=== PATIENT | female | born 1955 | race Hispanic/Latino ===

== ENCOUNTER → 2018-08-26 | Outpatient (CLI) | payer BC ==
[~2018-08-26] MED LIST: ASPIRIN81 MG PO; BYSTOLIC5 MG PO; COUMADIN5 MG PO; DIGOXIN250 MCG PO; GLIMEPIRIDE2 MG PO; LEVEMIR100 UNIT/1 SQ; LOSARTAN POTASS50 MG PO; PLAVIX75 MG PO; WARFARIN SODIUM5 MG PO
--- NOTE | 2018-09-11 08:51 | Diagnostic Imaging Report ---
#[id number] - [id number] #BILATERAL DIGITAL SCREENING MAMMOGRAM WITH CAD: 08/26/2018 CLINICAL: Routine screening. No prior exams were available for comparison. Current study contains 4 films. There are scattered fibroglandular elements in both breasts. Current study was also evaluated with a Computer Aided Detection (CAD) system. There are benign vascular calcifications and calcifications in both breasts. There also are benign intramammary nodes in both breasts. No significant masses, calcifications, or other findings are seen in either breast. IMPRESSION: BENIGN There is no mammographic evidence of malignancy. A 1 year screening mammogram is recommended. The patient will be notified by letter of the results. Robert ortiz/oriana:09/10/2018 14:12:40 Gathering Worker: Renae FERRER(R)(M), [facility] letter sent: Normal Exam Mammogram BI-RADS: 2 Benign
== END ==
LOC: MAMMO 09:34
PROVIDERS: ATTEND Internal Medicine
DX: Z12.31 Encounter for screening mammogram for malignant neoplasm of breast (principal)
CPT/HCPCS: 77067

== ENCOUNTER 2019-05-21 17:16 | Inpatient (IN) | payer MEDICARE, BC ==
[~2019-05-21] VITALS: Ht 162.6 cm; Wt 88.9 kg
--- NOTE | 2019-05-21 17:23 | NUR ---
Patient admitted to facility from [place] Patient is AAOx3. Patient lung snyder clear to ausculation. Bowel sounds present x4 but hypoactive on left side. Patient has some pain noted on left side of abdomen. Patient ambulates on her own. No s/s of distress noted. Right AC Iv in place. Iv fluids infusing. Patient is NPO at this time.
[2019-05-21] MEDS ORDERED: CLONIDINE HCL 0.1 MG TAB PO PRN (17:30)
[2019-05-21] MEDS ORDERED: DEXTROSE 50% SYRINGE 50 ML IV PRN (17:30)
[2019-05-21] MEDS ORDERED: ONDANSETRON HCL INJ 2MG/ML 2ML 2 MG/ML VIAL IV PRN (17:45)
[2019-05-21] MEDS ORDERED: HYDROMORPHONE 1MG/1ML INJ IV PRN (17:45)
[2019-05-21] MEDS: DIGOXIN INJ 0.25 MG/ML 2 ML AMP IV SCH (18:00)
[2019-05-21 18:14] VITALS: BP 146/71
[2019-05-21 18:17] VITALS: BP 146/71
[2019-05-21] MEDS ORDERED: COUMADIN5 MG PO ×2 (18:27→18:28)
[2019-05-21] MEDS: NEBIVOLOL 10 MG TAB PO SCH (18:37)
[2019-05-21] MEDS: SODIUM CHLORIDE 0.9% 1000ML 1,000 ML SCH (18:46)
--- NOTE | 2019-05-21 19:37 | History and Physical ---
REASON FOR ADMISSION: Acute cholecystitis in a patient with atrial fibrillation, coronary artery disease, hypertension, and diabetes mellitus. HISTORY: A 64-year-old lady, who is known with longstanding history of atrial fibrillation, coronary artery disease, status post anterior wall myocardial infarction in October 2015 with successful PCI and stenting of proximal LAD. She is diabetic with end-organ damage in addition to hypertension, atrial fibrillation on anticoagulation; remote past history of pulmonary embolism 20 years ago after . The patient is not doing well for the last few days, initially felt it has chest pain, and she came urgently to the emergency room. Upon exam, it was clear the patient having abdominal discomfort. CT scan showed acute cholecystitis confirmed by ultrasound, which showed gallstones. The patient's INR is elevated. We thought she needed to be on IV antibiotics and let her INR drift slowly. Surgical consultation with Dr. Bailey is obtained. HOME MEDICATIONS: Include: Plavix 75 mg a day, Bystolic 5 mg twice a day, losartan 50 mg a day, digoxin 0.125 mg a day, warfarin 15 mg 5 days a week and 10 mg 2 days a week. Levemir 20 units and sliding scale. ALLERGIES: SULFA AND STATIN. THE PATIENT IS INTOLERANT TO ALL STATINS. PAST MEDICAL HISTORY: 1. Coronary artery disease, status post PCI and stenting of proximal LAD using 2.75 x 24 PROMUS stent in 10/2015. 2. Atrial fibrillation. 3. Remote history of pulmonary embolism after . 4. Hypertension. 5. Hypercholesteremia. 6. Diabetes mellitus. 7. Degenerative joint disease. 8. . 9. Hysterectomy. 10. Appendectomy. 11. Left carpal tunnel surgery. 12. Knee surgery. SOCIAL HISTORY: She is . She is nonsmoker and non-alcohol drinker. FAMILY HISTORY: Father of CVA. Mother at age 86, she had heart problem, diabetes mellitus. Two brothers and three healthy children. SOCIAL HISTORY: . Nonsmoker. Social alcohol drinker if any. REVIEW OF SYSTEMS: GENERAL: Fever, chills, not feeling well. HEENT: Headache and lightheadedness. CARDIAC, PULMONARY, AND GI: As per acute illness. MUSCULOSKELETAL: Back pain. PHYSICAL EXAMINATION: VITAL SIGNS: Blood pressure 140/80, heart rate of 100, respiratory rate of 20. HEENT: Pupils are reactive. NECK: No elevation of jugular venous pulsation. CHEST: Decreased air entry in bases. HEART: Atrial fibrillation. Normal first and second heart sounds. ABDOMEN: Tenderness all over. EXTREMITIES: No cyanosis, no clubbing, no edema. IMPRESSION AND PLAN: 1. Acute cholecystitis. 2. Atrial fibrillation. 3. Coronary artery disease. 4. Diabetes mellitus. 5. Complicated cholecystitis. PLAN: Surgical consultation, IV antibiotics, and adjustment of medication as needed. MD LIBRADO Dunbar/MODL /[id number]
[2019-05-21 20:00] VITALS: BP 165/83
[2019-05-21] MEDS: HYDROMORPHONE 2MG/ML 2 MG/ML ML IV PRN (20:11)
[2019-05-21 20:23] VITALS: BP 165/83
[2019-05-21] MEDS ORDERED: ZOLPIDEM TARTRATE 5 MG TAB PO PRN (21:00)
[2019-05-21] MEDS ORDERED: INSULIN GLARGINE 100 UNITS/ML VIAL SQ SCH (21:00)
[2019-05-21] MEDS: PANTOPRAZOLE 40 MG 10ML VIAL IV SCH (21:01)
[2019-05-21] MEDS: LOSARTAN POTASSIUM 100 MG TAB PO SCH (21:03)
[2019-05-21] MEDS: PIPER-TAZ 3.375 GM 50 ML IV SCH (21:19)
[2019-05-21] MEDS ORDERED: SODIUM CHLORIDE 0.9% 250ML 250 ML ONE (23:44)
[2019-05-22] VITALS (7 sets, daily range): BP systolic 132–188; BP diastolic 72–97
[2019-05-22] MEDS: SODIUM CHLORIDE 0.9% 1000ML 1,000 ML SCH ×2 (03:30→13:30)
[2019-05-22] MEDS: PIPER-TAZ 3.375 GM 50 ML IV SCH ×3 (05:26→21:29)
[2019-05-22 06:03] LABS: BASOPHILS % 0.3 % (0.0-1.0); EOSINOPHILS % 0.1 % (0.0-6.0); HEMATOCRIT 34.3 % (34.2-44.1); HEMOGLOBIN 10.9 g/dL (12.0-16.0); LYMPHOCYTES # (AUTO) 0.6 (1.0-3.2); LYMPHOCYTES % 4.3 % (18.0-39.1); MEAN CORPUSCULAR HEMOGLOBIN 29.8 pg (28-32); MEAN CORPUSCULAR HGB CONC 31.8 g/dL (31-35); MEAN CORPUSCULAR VOLUME 93.7 fL (81-99); MONOCYTES # (AUTO) 1.3 (0.2-0.8); MONOCYTES % 8.8 % (4.4-11.3); NEUTROPHILS # (AUTO) 12.4 (2.1-6.9); NEUTROPHILS % 86.1 % (38.7-80.0); PLATELET COUNT 279 x10e3/uL (140-360); RED BLOOD COUNT 3.66 x10e6/uL (3.6-5.1); RED CELL DISTRIBUTION WIDTH 12.9 % (11.7-14.4)
[2019-05-22 06:34] LABS: ALANINE AMINOTRANSFERASE 60 IU/L (0-55); ALBUMIN 3.2 g/dL (3.5-5.0); ALBUMIN/GLOBULIN RATIO 0.8 (0.8-2.0); ALKALINE PHOSPHATASE 132 IU/L (40-150); ANION GAP 15.1 mmol/L (8-16); BLOOD UREA NITROGEN 13 mg/dL (7-26); BUN/CREATININE RATIO 16 (6-25); CALCIUM 9.3 mg/dL (8.4-10.2); CARBON DIOXIDE 26 mmol/L (22-29); CHLORIDE 102 mmol/L (98-107); CREATININE, SERUM 0.79 mg/dL (0.57-1.11); EST GLOMERULAR FILTRATION RATE > 60 ML/MIN (60-); GLUCOSE 164 mg/dL (74-118); POTASSIUM 4.1 mmol/L (3.5-5.1); SODIUM 139 mmol/L (136-145)
--- NOTE | 2019-05-22 07:46 | NUR ---
RECEIVED PATIENT AWAKE RESTING IN BED NO S/S OF DISTRESS. BED LOW, WHEELS LOCKED, SIDE RAILS X2. CALL LIGHT IN REACH, WILL CONTINUE TO MONITOR PATIENT.
[2019-05-22 08:02] LABS: INR 1.68; PROTHROMBIN TIME 20.4 seconds (11.9-14.5)
[2019-05-22] MEDS: NEBIVOLOL 10 MG TAB PO SCH ×2 (09:00→18:06)
[2019-05-22] MEDS ORDERED: PANTOPRAZOLE 40 MG 10ML VIAL IV SCH (09:00)
[2019-05-22] MEDS: PANTOPRAZOLE 40 MG 10ML VIAL IV SCH (09:51)
[2019-05-22] MEDS: DIGOXIN INJ 0.25 MG/ML 2 ML AMP IV SCH (09:51)
[2019-05-22] MEDS: HYDROMORPHONE 2MG/ML 2 MG/ML ML IV PRN (10:55)
[2019-05-22] MEDS ORDERED: SODIUM CHLORIDE 0.9% 250ML 250 ML ONE (11:05)
--- NOTE | 2019-05-22 11:20 | NUR ---
FRESH FROZEN PLASMA STARTED. PATIENT TOLERATING WELL. VITAL SIGNS STABLE. WILL CONTINUE TO MONITOR PATIENT.
--- NOTE | 2019-05-22 11:57 | NUR ---
FRESH FROZEN PLASMA COMPLETE. VS STABLE, NO SIGNS OF DISTRESS. WILL CONTINUE TO MONITOR PATIENT.
--- NOTE | 2019-05-22 12:30 | NUR ---
PATIENT LEFT TO OR AT THIS TIME
[2019-05-22] MEDS ORDERED: HYDROMORPHONE 2MG/ML 2 MG/ML ML ONE (12:54)
[2019-05-22] MEDS ORDERED: HYDROMORPHONE 2MG/ML 2 MG/ML ML IV ONE (13:00)
[2019-05-22] MEDS ORDERED: BUPIVACAINE 0.25%/EPI 30ML SDV INJ ONE (13:07)
[2019-05-22] MEDS ORDERED: IOPAMIDOL 610MG/1ML 300 MG/ML VIAL IV ONE (13:19)
[2019-05-22] MEDS ORDERED: ACETAMINOPHEN 1000 MG/100 ML IV PRN (15:15)
[2019-05-22] MEDS ORDERED: HYDROCODONE/APAP 7.5MG-325MG 1 EA TAB PO PRN (15:15)
[2019-05-22] MEDS ORDERED: NALOXONE HCL INJ 0.4 MG/ML AMP ONE (16:23)
--- NOTE | 2019-05-22 16:45 | NUR ---
PATIENT BACK FROM OR AT THIS TIME. WENT ARRIVED TO FLOOR PATIENT O2 SATS WERE 89% ON 3LNC. CALLED DR. LOYA AND TOLD TO PUT PATIENT ON VENTI MASK @ 40%. PATIENT NOW ON VENTI MASK O2 SATS READING 96%
--- NOTE | 2019-05-22 16:57 | Operative Report ---
DATE OF PROCEDURE: 05/22/2019 SURGEON: Monster Bailey MD PREOPERATIVE DIAGNOSES: Acute cholecystitis and cholelithiasis. POSTOPERATIVE DIAGNOSES: Acute gangrenous cholecystitis and cholelithiasis. OPERATION PERFORMED: Laparoscopic cholecystectomy with intraoperative cholangiograms. YEAST CULTURE DEVELOPER: Dr. Zoltan Bailey and TRAVIS Downing. ANESTHESIA: General. COMPLICATIONS: None. ESTIMATED BLOOD LOSS: Minimal. PROCEDURE IN DETAIL: With the patient lying in bed in the supine position under good general endotracheal anesthesia, the abdomen was prepped with Betadine solution and draped in the usual manner. A Veress needle was introduced into the right upper quadrant and pneumoperitoneum was established without any difficulty. A 5 mm trocar was placed in the right subcostal region and a 5 mm video laparoscope was placed into the intra-abdominal cavity. Video laparoscopy at this point revealed some adhesions to the lower abdomen, but the subumbilical space was free. An 11 mm trocar was then placed into the umbilicus and a 10 mm video laparoscope was placed into the intra-abdominal cavity. Under direct vision, two more 5 mm trocars were placed in the right subcostal region. Laparoscopy at this point revealed that other than the previously described adhesions, there was some fatty infiltration of the liver. The gallbladder could not be visualized as it was totally covered up with omental adhesions. The rest of the abdominal exploration was otherwise within normal limits. The omental adhesions to the gallbladder were then slowly and carefully taken down and an acutely inflamed gangrenous gallbladder was identified. This was tensely distended and it had to be decompressed in order to be able to grasp it. There was purulent fluid contained within the gallbladder itself. Once it was done, we were able to retract the gallbladder okay and the peritoneum overlying the neck of the gallbladder was then opened and the cystic duct was identified. The cystic duct was followed to its junction with the common duct. In the distal cystic duct was a stone impacted. The cystic duct was then circumferentially dissected and a clip was placed around the neck. A small opening was made into the cystic duct and a cholangiocath was introduced and using fluoroscopy, half-strength dye was introduced into the biliary tree. This showed free flow of dye into the duodenum, a normal size common bile duct with no common bile duct filling defects. There was, however, a filling defect in the distal cystic duct. The cholangiocath was then removed. The cystic duct was then circumferentially dissected away from the common duct and the stone was milked out of the cystic duct and the cystic duct was then clipped and divided. The cystic artery had an anterior and a posterior branch and both of these were individually clipped and divided. The gallbladder was then slowly and carefully taken off the liver bed using the cautery scissors. There was a lot of edema and inflammation from the cholecystitis. The gallbladder was nonetheless totally and completely removed from the liver bed. The gallbladder was then placed in a pouch and removed through the umbilicus. The laparoscopy was then again carried out. The liver bed was found to be perfectly dry. All of the excess fluid was aspirated. A SurgiSeal was then left in the gallbladder fossa. The pneumoperitoneum was evacuated and all the trocars were removed under direct vision. The midline fascia at the umbilicus was then closed with a leeerw-ci-hejwu of 0 Vicryl. All layers were infiltrated on the way out. Subcutaneous tissue was approximated with 3-0 Vicryl and the skin was closed with subcuticular 5-0 Vicryl. Benzoin, Steri-Strips, and Band-Aids were applied. The sponge, lap, and needle count was correct. The patient tolerated the procedure well and returned to the recovery room in stable condition. MD DIONY Whaley/ADA /[id number]
[2019-05-22] MEDS ORDERED: ONDANSETRON HCL INJ 2MG/ML 2ML 2 MG/ML VIAL ONE (17:15)
[2019-05-22] MEDS ORDERED: DEXAMETHASONE SOD PHOS INJ 4 MG/ML VIAL ONE (17:15)
[2019-05-22] MEDS ORDERED: LIDOCAINE HCL 2% LOCAL INJ 5 ML SDV VIAL INJ ONE (17:15)
[2019-05-22] MEDS ORDERED: PROPOFOL IV EMULSION 10 MG/ML 20 ML VIAL ONE (17:15)
[2019-05-22] MEDS ORDERED: ROCURONIUM BROMIDE 10 MG/ML 5ML VIAL ONE (17:15)
[2019-05-22] MEDS ORDERED: NEOSTIGMINE 5 MG/5ML SYR ONE (17:15)
[2019-05-22] MEDS ORDERED: GLYCOPYRROLATE INJ 1MG/ 5 ML SYR ONE (17:15)
[2019-05-22] MEDS ORDERED: SEVOFLURANE INHAL SOLN 250 ML PEN BTL ONE (17:15)
--- NOTE | 2019-05-22 18:00 | NUR ---
PATIENT TOLERATING SIPS OF WATER. PATIENT NOW ON CLEAR LIQUID DIET. 4 TROCAR SITES ON ABDOMEN ARE DRY/INTACT. IV FLUIDS REMAIN AT 100 CC/HR. CALL LIGHT IN REACH, WILL CONTINUE TO MONITOR PATIENT.
[2019-05-22] MEDS: METRONIDAZOLE 500MG/NS 100ML 100 ML IV SCH ×2 (18:02→23:35)
[2019-05-22] MEDS: INSULIN REGULAR, HUMAN 100 UNIT/1 ML 3ML VIAL SQ SCH (18:15)
[2019-05-22] MEDS: LOSARTAN POTASSIUM 100 MG TAB PO SCH (21:29)
--- NOTE | 2019-05-22 23:37 | NUR ---
patient dtv post cesar cath removal. patient denies need to void. encouraged patient to attempt a void, patient agreed. assisted patient to bathroom, patient successfully voided. assisted back to bed. no needs voiced at this time. bed locked and in lowest position, call light within easy reach.
[2019-05-23] VITALS (9 sets, daily range): BP systolic 122–171; BP diastolic 63–103
[2019-05-23] MEDS: INSULIN REGULAR, HUMAN 100 UNIT/1 ML 3ML VIAL SQ SCH ×4 (00:12→18:00)
[2019-05-23] MEDS: HYDRALAZINE HCL 20 MG/ML VIAL IV PRN (03:59)
[2019-05-23] MEDS: METRONIDAZOLE 500MG/NS 100ML 100 ML IV SCH ×3 (05:44→18:11)
[2019-05-23 05:58] LABS: BASOPHILS % 0.1 % (0.0-1.0); HEMATOCRIT 31.3 % (34.2-44.1); LYMPHOCYTES # (AUTO) 0.6 (1.0-3.2); LYMPHOCYTES % 3.7 % (18.0-39.1); MEAN CORPUSCULAR HEMOGLOBIN 29.9 pg (28-32); MEAN CORPUSCULAR HGB CONC 31.9 g/dL (31-35); MEAN CORPUSCULAR VOLUME 93.7 fL (81-99); MONOCYTES # (AUTO) 1.3 (0.2-0.8); MONOCYTES % 8.5 % (4.4-11.3); NEUTROPHILS # (AUTO) 13.7 (2.1-6.9); NEUTROPHILS % 87.3 % (38.7-80.0); PLATELET COUNT 253 x10e3/uL (140-360); RED BLOOD COUNT 3.34 x10e6/uL (3.6-5.1); RED CELL DISTRIBUTION WIDTH 12.9 % (11.7-14.4)
[2019-05-23 06:26] LABS: ALANINE AMINOTRANSFERASE 53 IU/L (0-55); ALBUMIN 2.7 g/dL (3.5-5.0); ALBUMIN/GLOBULIN RATIO 0.7 (0.8-2.0); ALKALINE PHOSPHATASE 115 IU/L (40-150); ANION GAP 12.3 mmol/L (8-16); BLOOD UREA NITROGEN 14 mg/dL (7-26); BUN/CREATININE RATIO 18 (6-25); CALCIUM 8.8 mg/dL (8.4-10.2); CARBON DIOXIDE 28 mmol/L (22-29); CHLORIDE 103 mmol/L (98-107); CREATININE, SERUM 0.76 mg/dL (0.57-1.11); EST GLOMERULAR FILTRATION RATE > 60 ML/MIN (60-); GLUCOSE 174 mg/dL (74-118); POTASSIUM 4.3 mmol/L (3.5-5.1); SODIUM 139 mmol/L (136-145)
[2019-05-23] MEDS: PIPER-TAZ 3.375 GM 50 ML IV SCH ×3 (06:44→22:00)
[2019-05-23 07:48] LABS: LYMPHOCYTES % (MANUAL) 3 % (19-48); MONOCYTES % (MANUAL) 6 % (3.4-9.0); NEUTROPHILS % (MANUAL) 91 % (40-74); PLATELET ESTIMATE ADEQUATE; PLATELET MORPHOLOGY COMMENT NORMAL; RBC MORPHOLOGY COMMENT NORMAL
--- NOTE | 2019-05-23 08:03 | Diagnostic Imaging Report ---
Intraoperative cholangiogram. History: Cholecystitis. Discussion: 8 images from intraoperative cholangiogram demonstrate contrast opacification of the intrahepatic and extrahepatic biliary ducts. Contrast is seen to flow into the duodenum. No filling defects are identified. Fluoroscopic time: 32 seconds. Dose: 9.4 mGy (DEVAN). Signed by: Colt Goldstein on 05/23/2019 8:00 AM
[2019-05-23 08:30] LABS: INR 1.71; PROTHROMBIN TIME 20.7 seconds (11.9-14.5)
[2019-05-23] MEDS: DIGOXIN INJ 0.25 MG/ML 2 ML AMP IV SCH (09:28)
[2019-05-23] MEDS: NEBIVOLOL 10 MG TAB PO SCH ×2 (09:29→17:00)
[2019-05-23] MEDS: PANTOPRAZOLE 40 MG 10ML VIAL IV SCH (09:29)
--- NOTE | 2019-05-23 09:29 | NUR ---
Patient alert and responsive, VSS and OOB and ambulated hallway, assisted to bathroom and past gas but no BM yet. Medicated for pain at this time, O2 Sats dropped to 88 without oxygen with exertion, re-applied O2 venturi mask and no resp distress. Patient sitting on chair at this time, will monitor.
[2019-05-23] MEDS ORDERED: FUROSEMIDE INJ 10 MG/ML 4 ML VIAL IV ONE (14:00)
--- NOTE | 2019-05-23 16:17 | NUR ---
IMM EXPLAINED TO PT, SIGNED BY PT AND PLACED IN CHART COPY TO PT IN CARE TRANSITIOINS FOLDER
--- NOTE | 2019-05-23 16:44 | NUR ---
PT DISCUSSED IN ROUNDS, ON IV ABX FOR 2 MORE DAYS TENTATIVE DISCHARGE IS SET FOR 05/25
--- NOTE | 2019-05-23 17:30 | NUR ---
Rounds by Dr. Segovia and took patient off venturi and placed patient on Nc, satting at 96% on 3 L
--- NOTE | 2019-05-23 17:56 | NUR ---
Nutrition Screen Note RD Recommendation for Physician: -Rec advancing diet to ADA 1800/ gluten free/ low fat diet as tolerated Plan of Care: RD following, monitoring for tolerance and adequacy, diet education Nutrition reason for involvement: Nutrition Risk Trigger MST Primary Diagnose(s): Acute cholecystitis PMH: CAD, Afib, HTN, hypercholesteremia, DM, DJD Ht: 64in Wt: 196lb BMI: 33.6kg/m2 IBW: 120lb +/- 10% RD Assessment: (05/23) Chart reviewed. Labs and meds reviewed. 64yo F, who was admitted for chest/ abdominal pain. S/p gallbladder surgery. POD 1. Pt tolerated full liquid diet during my visit. No complains of nausea or vomiting. Pt denied any issue with swallowing. Weight has been stable at 190lbs. Flatus present. Pt reported following a gluten free diet due to gluten intolerance. Will communicate that with kitchen. RD provided information on low fat diet. All questions have been answered. Current Diet: full liquid diet Malnutrition Evaluation (05/23/2019) The patient does not meet criteria for a specified degree of malnutrition at this time. Will re-evaluate at follow-up as appropriate. Diet Education Needs Assessment: Diet education indicated, pt is agreeable. Learner(s): pt Time spent: 20mins Barriers: No barriers identified. Cultural/Language Modifications: No cultural/language modifications noted. Pt speaks Kiswahili. Readiness: Pt eager to learn. Method: Handouts, explanation Topics: Gallbladder nutrition therapy - low fat diet Understanding/Compliance: Expect good understanding/compliance from pt. Will benefit from reinforcement. All questions have been answered. Nutrition Care Level: low Signed: Lauern Arreola, MS, RD, LD
--- NOTE | 2019-05-23 18:13 | Diagnostic Imaging Report ---
EXAMINATION: CHEST SINGLE (PORTABLE) INDICATION: Dyspnea. Post cholecystectomy. ^Dyspnea ^[id number] ^[id number] COMPARISON: 10/18/2015 FINDINGS: TUBES and LINES: None. LUNGS: The lungs are hypoinflated. No consolidated pneumonia. PLEURA: No pleural effusion or pneumothorax. HEART AND MEDIASTINUM: Cardiomegaly with pulmonary vascular congestion. BONES AND SOFT TISSUES: No acute osseous lesion. Soft tissues are unremarkable. UPPER ABDOMEN: No free air under the diaphragm. IMPRESSION: Cardiomegaly with pulmonary vascular congestion. Hypoinflated lungs. Signed by: Dr. Antonio Aguilera M.D. on 05/23/2019 6:09 PM
[2019-05-23] MEDS: LOSARTAN POTASSIUM 100 MG TAB PO SCH (22:00)
[2019-05-24] VITALS (8 sets, daily range): BP systolic 134–184; BP diastolic 68–88
[2019-05-24] MEDS: METRONIDAZOLE 500MG/NS 100ML 100 ML IV SCH ×4 (00:40→17:24)
[2019-05-24] MEDS: INSULIN REGULAR, HUMAN 100 UNIT/1 ML 3ML VIAL SQ SCH ×4 (05:51→17:15)
[2019-05-24 06:32] LABS: BASOPHILS % 0.2 % (0.0-1.0); EOSINOPHILS # (AUTO) 0.2 (0.0-0.4); EOSINOPHILS % 1.4 % (0.0-6.0); HEMATOCRIT 31.1 % (34.2-44.1); LYMPHOCYTES # (AUTO) 1.3 (1.0-3.2); LYMPHOCYTES % 10.7 % (18.0-39.1); MEAN CORPUSCULAR HEMOGLOBIN 29.8 pg (28-32); MEAN CORPUSCULAR HGB CONC 32.2 g/dL (31-35); MEAN CORPUSCULAR VOLUME 92.6 fL (81-99); MONOCYTES # (AUTO) 1.1 (0.2-0.8); MONOCYTES % 9.4 % (4.4-11.3); NEUTROPHILS # (AUTO) 9.2 (2.1-6.9); PLATELET COUNT 285 x10e3/uL (140-360); RED BLOOD COUNT 3.36 x10e6/uL (3.6-5.1)
[2019-05-24 06:44] LABS: INR 1.68; PROTHROMBIN TIME 20.4 seconds (11.9-14.5)
[2019-05-24] MEDS: PIPER-TAZ 3.375 GM 50 ML IV SCH ×3 (06:52→21:41)
[2019-05-24 06:57] LABS: ALANINE AMINOTRANSFERASE 42 IU/L (0-55); ALBUMIN 2.5 g/dL (3.5-5.0); ALBUMIN/GLOBULIN RATIO 0.7 (0.8-2.0); ALKALINE PHOSPHATASE 103 IU/L (40-150); ANION GAP 11.6 mmol/L (8-16); BLOOD UREA NITROGEN 15 mg/dL (7-26); BUN/CREATININE RATIO 19 (6-25); CALCIUM 8.3 mg/dL (8.4-10.2); CARBON DIOXIDE 28 mmol/L (22-29); CHLORIDE 105 mmol/L (98-107); CREATININE, SERUM 0.77 mg/dL (0.57-1.11); EST GLOMERULAR FILTRATION RATE > 60 ML/MIN (60-); GLUCOSE 157 mg/dL (74-118); POTASSIUM 3.6 mmol/L (3.5-5.1); SODIUM 141 mmol/L (136-145)
[2019-05-24] MEDS: PANTOPRAZOLE 40 MG 10ML VIAL IV SCH (09:00)
[2019-05-24] MEDS: DIGOXIN 0.125 MG TAB PO SCH (09:00)
[2019-05-24] MEDS: NEBIVOLOL 10 MG TAB PO SCH ×2 (09:00→17:24)
--- NOTE | 2019-05-24 11:12 | NUR ---
Spoke with Angelika the tube winder and informed to educate kitchen and ensure patient received a diabetic full liquid diet.
[2019-05-24] MEDS: HYDRALAZINE HCL 20 MG/ML VIAL IV PRN (12:33)
--- NOTE | 2019-05-24 12:34 | NUR ---
Call from Dr. Hook and orders in place for Lasix 20mg x1, and to start on 1800 ADA caloric diet
[2019-05-24] MEDS ORDERED: FUROSEMIDE INJ 10 MG/ML 2 ML VIAL IV ONE (13:00)
--- NOTE | 2019-05-24 16:36 | NUR ---
Report given to VINNIE Anthony at this time
--- NOTE | 2019-05-24 19:58 | NUR ---
Dr. Trevin Bailey rounding. Verbal orders received, and entered. entered new orders as well. Per MD, possible discharge for tomorrow after lunch.
[2019-05-24] MEDS ORDERED: NON-FORMULARY MEDICATION (Insulin Detemir (Levemir) 20 U) SQ SCH (21:00)
[2019-05-24] MEDS ORDERED: INSULIN REGULAR, HUMAN 100 UNIT/1 ML 3ML VIAL SQ SCH (21:00)
[2019-05-24] MEDS ORDERED: LOSARTAN POTASSIUM 25 MG TAB PO SCH (21:00)
--- NOTE | 2019-05-24 21:35 | NUR ---
patient ambulated in [place] with , gait steady. o2 sats remained in low 90's on RA. patient assisted to bed, scds reapplied. no further needs voiced at this time. bed locked and in lowest position, call light within easy reach. will continue to monitor.
[2019-05-24] MEDS ORDERED: LOSARTAN POTASSIUM 25 MG TAB PO ONE (21:45)
--- NOTE | 2019-05-24 23:45 | NUR ---
patient stable condition, resting with eyes closed. no distress observed. bed locked and in lowest position, call light within easy reach. continue to monitor.
[2019-05-25] VITALS (8 sets, daily range): BP systolic 109–170; BP diastolic 69–91
[2019-05-25] MEDS: METRONIDAZOLE 500MG/NS 100ML 100 ML IV SCH ×4 (00:55→17:26)
--- NOTE | 2019-05-25 02:05 | NUR ---
patient aaox3, having a snack at this time. denies pain. no further needs voiced. bed locked and in lowest position, call light within easy reach. continue to monitor.
--- NOTE | 2019-05-25 05:26 | NUR ---
patient resting with eyes closed, no distress observed. bed locked and in lowest position, call light within easy reach. continue to monitor.
[2019-05-25 05:50] LABS: BASOPHILS % 0.3 % (0.0-1.0); EOSINOPHILS # (AUTO) 0.2 (0.0-0.4); LYMPHOCYTES # (AUTO) 1.1 (1.0-3.2); LYMPHOCYTES % 12.1 % (18.0-39.1); MEAN CORPUSCULAR HEMOGLOBIN 29.7 pg (28-32); MEAN CORPUSCULAR HGB CONC 32.3 g/dL (31-35); MONOCYTES # (AUTO) 0.9 (0.2-0.8); MONOCYTES % 10.1 % (4.4-11.3); NEUTROPHILS # (AUTO) 6.5 (2.1-6.9); PLATELET COUNT 294 x10e3/uL (140-360); RED BLOOD COUNT 3.37 x10e6/uL (3.6-5.1); RED CELL DISTRIBUTION WIDTH 12.8 % (11.7-14.4)
[2019-05-25 06:05] LABS: INR 1.46; PROTHROMBIN TIME 18.3 seconds (11.9-14.5)
[2019-05-25 06:13] LABS: ALANINE AMINOTRANSFERASE 33 IU/L (0-55); ALBUMIN 2.5 g/dL (3.5-5.0); ALBUMIN/GLOBULIN RATIO 0.7 (0.8-2.0); ALKALINE PHOSPHATASE 102 IU/L (40-150); ANION GAP 14.3 mmol/L (8-16); BLOOD UREA NITROGEN 14 mg/dL (7-26); BUN/CREATININE RATIO 19 (6-25); CALCIUM 8.5 mg/dL (8.4-10.2); CARBON DIOXIDE 27 mmol/L (22-29); CHLORIDE 102 mmol/L (98-107); CREATININE, SERUM 0.72 mg/dL (0.57-1.11); EST GLOMERULAR FILTRATION RATE > 60 ML/MIN (60-); GLUCOSE 163 mg/dL (74-118); POTASSIUM 3.3 mmol/L (3.5-5.1); SODIUM 140 mmol/L (136-145)
[2019-05-25] MEDS: FUROSEMIDE 20 MG TAB PO SCH (06:49)
[2019-05-25] MEDS: PIPER-TAZ 3.375 GM 50 ML IV SCH ×3 (06:49→21:35)
--- NOTE | 2019-05-25 07:15 | NUR ---
report given to oncoming nurse.
[2019-05-25] MEDS: INSULIN GLARGINE 100 UNITS/ML VIAL SQ SCH ×2 (07:30→21:35)
[2019-05-25] MEDS: PANTOPRAZOLE SOD 40 MG TABEC PO SCH (07:30)
[2019-05-25] MEDS: NEBIVOLOL 10 MG TAB PO SCH ×2 (08:24→16:55)
[2019-05-25] MEDS: DIGOXIN 0.125 MG TAB PO SCH (08:25)
[2019-05-25] MEDS: LOSARTAN POTASSIUM 25 MG TAB PO SCH ×2 (08:25→16:56)
[2019-05-25] MEDS ORDERED: FUROSEMIDE 20 MG TAB PO SCH (09:00)
[2019-05-25] MEDS ORDERED: POTASSIUM CHLORIDE 20 MEQ TAB CR PO ONE ×2 (11:00→11:30)
[2019-05-25] MEDS: POTASSIUM CHLORIDE 20 MEQ TAB CR PO SCH (15:52)
[2019-05-25] MEDS ORDERED: WARFARIN SOD 5 MG TAB PO ONE (17:00)
--- NOTE | 2019-05-25 19:00 | NUR ---
RECEIVED PATIENT AT THIS TIME. PATIENT IS AMBULATING IN HALLWAY AT THIS TIME. STEADY GAIT NOTED. NO S&S OF DISTRESS NOTED.
[2019-05-26] VITALS (7 sets, daily range): BP systolic 139–184; BP diastolic 65–87
[2019-05-26] MEDS: METRONIDAZOLE 500MG/NS 100ML 100 ML IV SCH ×3 (00:16→12:00)
[2019-05-26] MEDS: HYDRALAZINE HCL 20 MG/ML VIAL IV PRN (00:16)
[2019-05-26 05:55] LABS: BASOPHILS # (AUTO) 0.1 (0.0-0.1); BASOPHILS % 0.5 % (0.0-1.0); EOSINOPHILS # (AUTO) 0.2 (0.0-0.4); EOSINOPHILS % 1.7 % (0.0-6.0); HEMATOCRIT 34.4 % (34.2-44.1); HEMOGLOBIN 11.3 g/dL (12.0-16.0); LYMPHOCYTES # (AUTO) 1.1 (1.0-3.2); LYMPHOCYTES % 11.5 % (18.0-39.1); MEAN CORPUSCULAR HEMOGLOBIN 29.9 pg (28-32); MEAN CORPUSCULAR HGB CONC 32.8 g/dL (31-35); NEUTROPHILS # (AUTO) 7.5 (2.1-6.9); NEUTROPHILS % 75.9 % (38.7-80.0); PLATELET COUNT 322 x10e3/uL (140-360); RED BLOOD COUNT 3.78 x10e6/uL (3.6-5.1); RED CELL DISTRIBUTION WIDTH 12.8 % (11.7-14.4)
[2019-05-26 06:16] LABS: ALANINE AMINOTRANSFERASE 32 IU/L (0-55); ALBUMIN 2.7 g/dL (3.5-5.0); ALBUMIN/GLOBULIN RATIO 0.7 (0.8-2.0); ALKALINE PHOSPHATASE 99 IU/L (40-150); ANION GAP 13.6 mmol/L (8-16); BLOOD UREA NITROGEN 11 mg/dL (7-26); BUN/CREATININE RATIO 15 (6-25); CALCIUM 8.9 mg/dL (8.4-10.2); CARBON DIOXIDE 27 mmol/L (22-29); CHLORIDE 103 mmol/L (98-107); CREATININE, SERUM 0.74 mg/dL (0.57-1.11); EST GLOMERULAR FILTRATION RATE > 60 ML/MIN (60-); GLUCOSE 143 mg/dL (74-118); POTASSIUM 3.6 mmol/L (3.5-5.1); SODIUM 140 mmol/L (136-145)
[2019-05-26] MEDS: PIPER-TAZ 3.375 GM 50 ML IV SCH ×2 (06:35→14:00)
[2019-05-26 06:50] LABS: INR 1.27; PROTHROMBIN TIME 16.5 seconds (11.9-14.5)
--- NOTE | 2019-05-26 07:24 | NUR ---
RECEIVED PATIENT AWAKE RESTING IN BED NO SIGNS OF DISTRESS. BED LOW, WHEELS LOCKED, SIDE RAILS X2. CALL LIGHT IN REACH WILL CONTINUE TO MONITOR PATIENT.
[2019-05-26] MEDS: INSULIN GLARGINE 100 UNITS/ML VIAL SQ SCH (08:46)
[2019-05-26] MEDS: LOSARTAN POTASSIUM 25 MG TAB PO SCH ×2 (08:46→16:21)
[2019-05-26] MEDS: NEBIVOLOL 10 MG TAB PO SCH ×2 (08:46→16:21)
[2019-05-26] MEDS: PANTOPRAZOLE SOD 40 MG TABEC PO SCH (08:46)
[2019-05-26] MEDS: DIGOXIN 0.125 MG TAB PO SCH (08:47)
[2019-05-26] MEDS: FUROSEMIDE 20 MG TAB PO SCH (08:47)
--- NOTE | 2019-05-26 09:15 | NUR ---
PATIENT A/O X3, EVEN RESPIRATIONS ON RA. BOWEL SOUNDS ACTIVE, SKIN INTACT, NO EDEMA. TELEMETRY #19 A-FIB. PATIENT AMBULATES WITH STANDBY ASSIST. VOIDS IN TOILET. RIGHT AC 20 GAUGE IV KVO @ 10 CC/HR. IV INTACT AND PATENT. NO PAIN OR DISCOMFORT AT THIS TIME. EDUCATED PATIENT TO CALL NURSE FOR ASSISTANCE. CALL LIGHT IN REACH. WILL CONTINUE TO MONITOR PATIENT.
[2019-05-26] MEDS ORDERED: ONDANSETRON HCL 4 MG ORAL DISINTEGRATING TAB PO PRN (13:30)
[2019-05-26] MEDS ORDERED: LEVAQUIN500 MG PO (14:16)
[2019-05-26] MEDS ORDERED: BYSTOLIC5 MG PO (14:16)
[2019-05-26] MEDS ORDERED: LOSARTAN POTASS50 MG PO (14:16)
[2019-05-26] MEDS ORDERED: DIGOXIN125 MCG PO (14:21)
--- NOTE | 2019-05-26 14:52 | Discharge Summary ---
REASON FOR HOSPITALIZATION: Sepsis due to acute gangrenous cholecystitis. OTHER DIAGNOSES: 1. Atrial fibrillation. 2. Coronary artery disease. 3. Hypertension, essential. 4. Hypercholesterolemia. 5. Type 2 diabetes. BRIEF HOSPITAL COURSE: Ms. Thompson is a 64-year-old lady, well known to us, with history of hypertension, hypercholesterolemia, type 2 diabetes, coronary disease with prior history of myocardial infarction and stenting to the LAD, chronic atrial fibrillation on anticoagulation therapy, remote history of DVT and PE in the past as well, who presented initially to [facility] with acute gangrenous cholecystitis. She was transferred here for further care and management. She was given IV antibiotic therapy with Zosyn, had her anticoagulation reversed with FFP and taken to the operating room on May 22, 2019. The patient had a successful removal of her gallbladder along with intraoperative cholangiogram making sure there was no biliary issues. She remained in the hospital for further IV antibiotics and management of care. Every day, the patient continued to improve clinically and on day of discharge, she was ambulating, eating well and having bowel movements without any issues. Her white count had come down to 9 on the day of discharge. CONDITION AT DISCHARGE: Fair. ALLERGIES: STATINS AND SULFA. DISCHARGE MEDICATIONS: 1. Bystolic 5 mg b.i.d. 2. Digoxin 0.125 mg daily. 3. Levemir 20 units subcu q.a.m., 15 units subcu at bedtime. 4. Plavix 75 mg daily, to be restarted on May 27, 2019. 5. Coumadin 10 mg daily. 6. Losartan 50 mg b.i.d. DISCHARGE INSTRUCTIONS: 1. The patient was instructed routine postop wound care, restrictions from a laparoscopic cholecystectomy standpoint. 2. The patient instructed not to work for the next two weeks. 3. Followup was made with us next Sunday at 4 p.m. DISCHARGE DIET: Low-fat, low-cholesterol, 2 g sodium, 1800 kilocalorie ADA diet. MD NORAH Oconnell/ADA /[id number]
--- NOTE | 2019-05-26 14:55 | NUR ---
REMOVED PATIENTS IV. CATHETER TIP INTACT ON REMOVAL AND PRESSURE DRESSING APPLIED.
[2019-05-26] MEDS: POTASSIUM CHLORIDE 20 MEQ TAB CR PO SCH (16:21)
--- NOTE | 2019-05-26 16:39 | NUR ---
PATIENT DISCHARGED FROM FACILITY. PATIENT GATHERED ALL PERSONAL BELONGINGS, DISCHARGE INSTRUCTIONS, AND FOLLOW UP INFORMATION. LEFT UNIT IN WHEELCHAIR AND WENT HOME VIA PRIVATE AUTO. NO SIGNS OF DISTRESS WHEN LEAVING FACILITY.
== END 2019-05-26 16:39 | disposition home or self-care (01) | DRG 853 ==
LOC: MED/SURG 17:16
PROVIDERS: ADMIT Surgery; ATTEND Surgery
PROC: BF131ZZ Fluoroscopy of Gallbladder and Bile Ducts using Low Osmolar Contrast (ICD-10-PCS; 2019-05-22)
PROC: 30233K1 Transfusion of Nonautologous Frozen Plasma into Peripheral Vein, Percutaneous Approach (ICD-10-PCS; 2019-05-22)
PROC: 0FT44ZZ Resection of Gallbladder, Percutaneous Endoscopic Approach (ICD-10-PCS; principal; 2019-05-22 13:14)
DX: A41.9 Sepsis, unspecified organism (principal); I50.33 Acute on chronic diastolic (congestive) heart failure; K80.00 Calculus of gallbladder with acute cholecystitis without obstruction; K82.A1 Gangrene of gallbladder in cholecystitis; I48.2 Chronic atrial fibrillation; I25.10 Atherosclerotic heart disease of native coronary artery without angina pectoris; E11.9 Type 2 diabetes mellitus without complications; E78.00 Pure hypercholesterolemia, unspecified; I11.0 Hypertensive heart disease with heart failure; M19.90 Unspecified osteoarthritis, unspecified site; I25.2 Old myocardial infarction; Z79.01 Long term (current) use of anticoagulants; Z95.5 Presence of coronary angioplasty implant and graft; Z86.718 Personal history of other venous thrombosis and embolism; Z86.711 Personal history of pulmonary embolism; Z82.3 Family history of stroke; Z83.3 Family history of diabetes mellitus; Z82.49 Family history of ischemic heart disease and other diseases of the circulatory system; Z79.02 Long term (current) use of antithrombotics/antiplatelets; Z79.4 Long term (current) use of insulin
CPT/HCPCS: 36415; 71045; 74300; 80053; 82150; 82948; 85025; 85610; 85730; 86850; 86900; 88304; C1766; J0360; J1100; J1160; J1815; J1940; J2001; J2310; J2405; J2543; J7030; J7050; P9017

== ENCOUNTER → 2020-01-13 | Outpatient (CLI) | payer MEDICARE, BC ==
[~2020-01-13] MED LIST changes: +DIGOXIN125 MCG PO; +GADOBENATE DIMEGLUMINE 1 ML IV ONE; +LEVAQUIN500 MG PO; +SODIUM CHLORIDE 0.9% 100 ML ONE
[2020-01-13 14:22] LABS: BASOPHILS # (AUTO) 0.1 (0.0-0.1); BASOPHILS % 0.5 % (0.0-1.0); EOSINOPHILS # (AUTO) 0.1 (0.0-0.4); EOSINOPHILS % 0.7 % (0.0-6.0); HEMATOCRIT 41.6 % (34.2-44.1); HEMOGLOBIN 13.3 g/dL (12.0-16.0); LYMPHOCYTES # (AUTO) 1.9 (1.0-3.2); LYMPHOCYTES % 17.3 % (18.0-39.1); MEAN CORPUSCULAR HEMOGLOBIN 28.5 pg (28-32); MEAN CORPUSCULAR VOLUME 89.1 fL (81-99); MONOCYTES # (AUTO) 0.7 (0.2-0.8); MONOCYTES % 6.7 % (4.4-11.3); NEUTROPHILS # (AUTO) 8.2 (2.1-6.9); NEUTROPHILS % 74.5 % (38.7-80.0); PLATELET COUNT 439 x10e3/uL (140-360); RED BLOOD COUNT 4.67 x10e6/uL (3.6-5.1); RED CELL DISTRIBUTION WIDTH 13.3 % (11.7-14.4)
[2020-01-13 14:34] LABS: INR 1.88
[2020-01-13 14:43] LABS: ALBUMIN 3.4 g/dL (3.5-5.0); ALBUMIN/GLOBULIN RATIO 0.8 (0.8-2.0); ANION GAP 10.7 mmol/L (8-16); CALCIUM 9.4 mg/dL (8.4-10.2); CREATININE, SERUM 1.03 mg/dL (0.57-1.11); POTASSIUM 4.7 mmol/L (3.5-5.1)
--- NOTE | 2020-01-13 16:43 | Diagnostic Imaging Report ---
Examination: MRI BRAIN WO CONTRAST History: Left arm and left side weakness. Comparison studies: Head CT performed November 19, 2019 Technique: Sagittal T2; axial DWI, FLAIR, GRE or SWI, T1, Coronal FLAIR. Intravenous contrast: None Findings: Scalp: No abnormal signal. No masses. Bone marrow: Normal in signal intensity. Brain volume: Adequate for age. No volume loss. Ventricles: Normal in size and configuration. No hydrocephalus. Extra-axial spaces: No abnormalities. Parenchyma: There are scattered punctate areas of T2/FLAIR hyperintensity in the periventricular and subcortical white matter, nonspecific. A punctate focus of restricted diffusion is identified in the right posterior periventricular/periatrial white matter with associated punctate FLAIR signal change. No masses, hemorrhage, or acute vascular insults. Suprasellar and sellar region: No abnormalities. Craniocervical junction: No abnormalities. The foramen magnum is patent. No Chiari malformations. Vessels: Normal flow-voids in the arteries and sinuses. Additional findings:None. IMPRESSION: No acute hemorrhage. A single punctate focus of acute infarct is identified in the right posterior periventricular/periatrial white matter, but does not correspond to patient's clinical symptoms of left arm and left-sided weakness. No additional acute infarct. Mild chronic microvascular ischemic change. Signed by: Dr. Gabby Hobbs M.D. on 01/13/2020 4:41 PM
--- NOTE | 2020-01-13 16:49 | Diagnostic Imaging Report ---
Examination: MRA HEAD WO, MRA NECK WOW CONTRAST History: Left arm and left-sided weakness. Comparison studies: None Technique: 2-D and 3-D [id number] MR angiograms of the cervical and intracranial circulations were obtained. MIP images of the arteries were isolated into the right and left cervical circulations and anterior and posterior intracranial circulations, 180 degree projections. Sagittal and coronal MPR images, and axial source images are available for evaluation. Intravenous contrast: 17 mL MultiHance. Degree of stenosis at the carotid bulbs, if present, will be calculated using NASCET criteria where the smallest diameter at the location of stenosis is compared to the diameter of the more distal non-diseased vessel lumen. Findings: Cervical MRA Aortic arch: Normal 3 great vessel origin. Patent. Internal carotid arteries: No flow abnormalities at the origins of the common carotid arteries, the cervical carotid bifurcations or in the cervical segments. Vertebral arteries: No flow abnormalities at the origins of the vertebral arteries or through its cervical segments (V1-V3). Intracranial MRA: Internal carotid arteries: Patent. Anterior cerebral arteries: Patent A1 and A2 segments. Middle cerebral arteries: Patent M1 and M2 segments. Vertebrobasilar circulation: Patent. Posterior cerebral arteries: Patent bilateral P1 and P2 segments. Anatomical variants: Anterior communicating arteries: Patent. Posterior communicating arteries: Patent. Vertebral arteries:Codominant. IMPRESSION: No cervical or intracranial arterial stenosis or occlusion or vascular malformation. Signed by: Dr. Gabby Hobbs M.D. on 01/13/2020 5:51 PM
== END ==
LOC: MRI 13:29
PROVIDERS: ATTEND Surgery
DX: R53.1 Weakness (principal)
CPT/HCPCS: 36415; 70544; 70549; 70551; 80053; 85025; 85610; 85730; A9577; J7050

== ENCOUNTER → 2020-01-14 | Outpatient (CLI) | payer MEDICARE, BC ==
[~2020-01-14] MED LIST changes: -GADOBENATE DIMEGLUMINE 1 ML IV ONE; -SODIUM CHLORIDE 0.9% 100 ML ONE
--- NOTE | 2020-01-14 17:54 | Diagnostic Imaging Report ---
History: Left arm weakness and numbness 3 days Comparison studies: None Technique: Sagittal T1, T2 and IR, axial T2 and axial gradient echo Intravenous contrast: None Findings: Alignment: Straightening of the usual lordosis is probably positional. No scoliosis. Cervicomedullary junction: No abnormalities. Patent foramen magnum. Soft tissues: No T2 hyperintense inflammatory changes. Spinal cord: Normal in size and signal from the foramen magnum through T1. Vertebrae: Normal in height and signal intensity. No fractures, infection or neoplasm. Degenerative changes: C2-C3: Age-related loss of disc space signal. Otherwise, no abnormalities. C3-C4: Age-related loss of disc space signal. Otherwise, no abnormalities. C4-C5: Age-related loss of disc space signal. Otherwise, no abnormalities. C5-C6: Mildly degenerated disc. Mild spinal canal stenosis due to a disc osteophyte complex. Mild bilateral foraminal stenosis, left greater than right due to facet and uncoarthrosis No disc herniation C6-C7: Moderately degenerated disc. Mild spinal canal stenosis due to a disc osteophyte complex. Foraminal stenosis, mild right, moderate left is due to uncoarthrosis. No disc herniation C7-T1: No abnormalities. IMPRESSION: 1. Mildly degenerated disc at C5-6, moderate at C6-7. 2. Mild spinal canal stenosis at both levels due to disc osteophyte complexes. 3. Foraminal stenosis bilaterally at both levels is worse on the left at C6-7. 4. No disc herniations. Signed by: Dr. Satinder Brooks M.D. on 01/14/2020 5:51 PM
== END ==
LOC: MRI 13:22
PROVIDERS: ATTEND Surgery
DX: R53.1 Weakness (principal); R20.0 Anesthesia of skin
CPT/HCPCS: 72141

== ENCOUNTER → 2020-08-13 | Outpatient (CLI) | payer MEDICARE, BC | LOC: MAMMO 10:50 | PROVIDERS: ATTEND Internal Medicine | DX: Z12.31 Encounter for screening mammogram for malignant neoplasm of breast (principal) | CPT/HCPCS: 77067 ==

== ENCOUNTER → 2020-11-03 | Outpatient (CLI) | payer MEDICARE, OTHER ==
[~2020-11-03] MED LIST changes: +COVID-19 VACC, MRNA(MODERNA)/PF 100 MCG/0.5 ML VIAL IM ONE
== END ==
LOC: VACCPMC 18:30
DX: Z23 Encounter for immunization (principal); Z20.828 Contact with and (suspected) exposure to other viral communicable diseases

== ENCOUNTER → 2020-12-06 | Outpatient (CLI) | payer OTHER | LOC: VACCPMC 08:57 | DX: Z23 Encounter for immunization (principal); Z20.822 Contact with and (suspected) exposure to COVID-19 ==

== ENCOUNTER → 2021-09-09 | Outpatient (CLI) | payer MEDICARE, BC ==
[~2021-09-09] MED LIST changes: -COVID-19 VACC, MRNA(MODERNA)/PF 100 MCG/0.5 ML VIAL IM ONE
== END ==
LOC: MAMMO 13:29
PROVIDERS: ATTEND Internal Medicine
DX: Z12.31 Encounter for screening mammogram for malignant neoplasm of breast (principal); Z13.820 Encounter for screening for osteoporosis; M94.9 Disorder of cartilage, unspecified
CPT/HCPCS: 77067; 77080

== ENCOUNTER → 2021-09-16 | Outpatient (CLI) | payer OTHER, BC, MEDICARE ==
[~2021-09-16] MED LIST changes: +COVID-19 VACC, MRNA(MODERNA)/PF 100 MCG/0.5 ML VIAL IM ONE
== END ==
LOC: VACCPMC 10:48
DX: Z23 Encounter for immunization (principal); Z20.822 Contact with and (suspected) exposure to COVID-19
CPT/HCPCS: 91301

== ENCOUNTER 2022-04-21 09:30 | Inpatient (IN) | payer MEDICARE, BC ==
[~2022-04-21] VITALS: Ht 162.6 cm; Wt 94.5 kg
[~2022-04-21 09:30] MED LIST changes: -COVID-19 VACC, MRNA(MODERNA)/PF 100 MCG/0.5 ML VIAL IM ONE
[2022-04-21] MEDS ORDERED: HYDROMORPHONE 1MG/1ML INJ IV STA ×3 (09:37→10:44)
[2022-04-21] MEDS ORDERED: LACTATED RINGER'S 1,000 ML INJ STA (09:37)
[2022-04-21] MEDS ORDERED: ONDANSETRON HCL INJ 2MG/ML 2ML 2 MG/ML VIAL IV STA (09:37)
[2022-04-21 10:04] LABS: BASOPHILS # (AUTO) 0.1 (0.0-0.1); BASOPHILS % 0.6 % (0.0-1.0); EOSINOPHILS # (AUTO) 0.1 (0.0-0.4); EOSINOPHILS % 0.8 % (0.0-6.0); HEMATOCRIT 38.1 % (34.2-44.1); HEMOGLOBIN 12.3 g/dL (12.0-16.0); LYMPHOCYTES # (AUTO) 1.5 (1.0-3.2); LYMPHOCYTES % 14.9 % (18.0-39.1); MEAN CORPUSCULAR HEMOGLOBIN 29.2 pg (28-32); MEAN CORPUSCULAR HGB CONC 32.3 g/dL (31-35); MEAN CORPUSCULAR VOLUME 90.5 fL (81-99); MONOCYTES # (AUTO) 0.8 (0.2-0.8); MONOCYTES % 7.4 % (4.4-11.3); NEUTROPHILS # (AUTO) 7.8 (2.1-6.9); NEUTROPHILS % 75.7 % (38.7-80.0); PLATELET COUNT 398 x10e3/uL (140-360); RED BLOOD COUNT 4.21 x10e6/uL (3.6-5.1); RED CELL DISTRIBUTION WIDTH 13.5 % (11.7-14.4)
[2022-04-21] MEDS ORDERED: SODIUM CHLORIDE 0.9% 100 ML ONE (10:13)
[2022-04-21] MEDS ORDERED: IOPAMIDOL 370 MG/ML 100 ML INFUS..BTL INJ ONE (10:13)
[2022-04-21 10:30] LABS: ALBUMIN/GLOBULIN RATIO 0.7 (0.8-2.0); ANION GAP 16.1 mmol/L (8-16); CALCIUM 8.4 mg/dL (8.4-10.2); CREATININE, SERUM 1.3 mg/dL (0.57-1.11); POTASSIUM 4.1 mmol/L (3.5-5.1)
[2022-04-21] MEDS ORDERED: HYDROMORPHONE 2MG/ML 2 MG/ML ML ONE (10:56)
[2022-04-21] MEDS ORDERED: ONDANSETRON HCL INJ 2MG/ML 2ML 2 MG/ML VIAL IV PRN ×2 (11:00→16:00)
[2022-04-21] MEDS ORDERED: SODIUM CHLORIDE 0.9% 1000ML 1,000 ML IV SCH (11:00)
[2022-04-21] MEDS ORDERED: HYDROMORPHONE 1MG/1ML INJ IV PRN ×2 (11:00→16:00)
[2022-04-21] MEDS ORDERED: MIDAZOLAM HCL 2 MG/2 ML VIAL ONE (11:35)
[2022-04-21] MEDS ORDERED: FENTANYL CITRATE/PF 100MCG/2 ML INJ ONE ×2 (11:35→12:41)
[2022-04-21] MEDS ORDERED: SODIUM CHLORIDE 0.9% 1000ML 1,000 ML ONE (11:36)
[2022-04-21] MEDS ORDERED: IOPAMIDOL 300MG/ML 100 ML INFUS..BTL IV ONE ×2 (11:36→12:11)
[2022-04-21] MEDS ORDERED: POVIDONE IODINE 0.05% 0.05 % ML PO ONE (12:16)
[2022-04-21] MEDS ORDERED: ROCURONIUM BROMIDE 10 MG/ML 5ML VIAL IV ONE (12:16)
[2022-04-21] MEDS ORDERED: SUCCINYLCHOLINE CHLORIDE 20 MG/ML 10ML VIAL ONE (12:16)
[2022-04-21] MEDS ORDERED: LIDOCAINE HCL 2% LOCAL INJ 5 ML SDV VIAL INJ ONE (12:16)
[2022-04-21] MEDS ORDERED: SEVOFLURANE INHAL SOLN 250 ML PEN BTL ONE (12:16)
[2022-04-21] MEDS ORDERED: EPHEDRINE SULFATE INJ 50 MG/ML VIAL ONE (12:16)
[2022-04-21] MEDS ORDERED: PROPOFOL IV EMULSION 10 MG/ML 20 ML VIAL ONE (12:16)
[2022-04-21] MEDS ORDERED: ONDANSETRON HCL INJ 2MG/ML 2ML 2 MG/ML VIAL ONE (12:16)
[2022-04-21] MEDS ORDERED: SODIUM CHLORIDE 0.9% 250ML 250 ML IV ONE (12:45)
[2022-04-21] MEDS ORDERED: FIBRIN FROZEN 2 ML SPRAY.GEL TOP ONE (14:36)
[2022-04-21] MEDS ORDERED: BUPIVACAINE HC 0.75% PF 10ML VIAL INJ ONE ×2 (15:15→15:23)
[2022-04-21] MEDS ORDERED: HEPARIN SOD/SOD CHLORIDE 1,000 ML ONE (15:17)
[2022-04-21] MEDS ORDERED: HYDROCODONE/APAP 7.5MG-325MG 1 EA TAB PO PRN (16:00)
[2022-04-21] MEDS ORDERED: DEXTROSE 50% SYRINGE 50 ML IV PRN ×3 (16:15→17:30)
[2022-04-21] MEDS ORDERED: INSULIN LISPRO 100 UNIT/1 ML 3ML VIAL SQ SCH (16:30)
[2022-04-21] MEDS: SODIUM CHLORIDE 0.9% 1000ML 1,000 ML IV SCH (17:44)
[2022-04-21] MEDS ORDERED: INSULIN REGULAR, HUMAN 100 UNIT/1 ML SQ SCH (18:00)
[2022-04-21] MEDS: INSULIN LISPRO 100 UNIT/1 ML 3ML VIAL SQ SCH ×2 (18:14→23:47)
[2022-04-21] MEDS: LOSARTAN POTASSIUM 25 MG TAB PO SCH (18:37)
[2022-04-21] MEDS: NEBIVOLOL 10 MG TAB PO SCH (18:37)
[2022-04-21 19:00] VITALS: BP 170/68
[2022-04-21] MEDS ORDERED: LEVEMIR100 UNIT/1 SC (19:30)
[2022-04-21] MEDS ORDERED: ASPIRIN EC81 MG PO (19:30)
[2022-04-21] MEDS ORDERED: gemtesa PO (19:30)
[2022-04-21] MEDS ORDERED: BENICAR20 MG PO (19:30)
[2022-04-21] MEDS ORDERED: FARXIGA5 MG PO (19:30)
[2022-04-21 19:31] VITALS: BP 163/66
[2022-04-21 20:00] VITALS: BP 163/65
[2022-04-21 21:00] VITALS: BP 140/68
[2022-04-21 22:00] VITALS: BP 114/51
[2022-04-21 23:00] VITALS: BP 124/55
[2022-04-21] MEDS: ACETAMINOPHEN 1000 MG/100 ML IV PRN (23:46)
[2022-04-21] MEDS ORDERED: ACETAMINOPHEN 1000 MG/100 ML 100 ML IV ONE (23:50)
[2022-04-22] VITALS (17 sets, daily range): BP systolic 102–164; BP diastolic 40–56
[2022-04-22] MEDS ORDERED: HYDROCODONE/APAP 7.5MG-325MG 1 EA TAB PO PRN ×2 (02:00)
[2022-04-22] MEDS: SODIUM CHLORIDE 0.9% 1000ML 1,000 ML IV SCH ×3 (02:30→21:41)
[2022-04-22] MEDS: INSULIN LISPRO 100 UNIT/1 ML 3ML VIAL SQ SCH ×3 (06:00→18:23)
[2022-04-22] MEDS: ACETAMINOPHEN 1000 MG/100 ML IV PRN (06:45)
[2022-04-22] MEDS ORDERED: ACETAMINOPHEN 1000 MG/100 ML 100 ML IV ONE (06:52)
[2022-04-22 07:18] LABS: BASOPHILS % 0.1 % (0.0-1.0); EOSINOPHILS % 0.1 % (0.0-6.0); HEMATOCRIT 28.3 % (34.2-44.1); HEMOGLOBIN 8.6 g/dL (12.0-16.0); LYMPHOCYTES # (AUTO) 1.3 (1.0-3.2); MEAN CORPUSCULAR HEMOGLOBIN 28.9 pg (28-32); MEAN CORPUSCULAR HGB CONC 30.4 g/dL (31-35); MONOCYTES # (AUTO) 1.5 (0.2-0.8); MONOCYTES % 9.1 % (4.4-11.3); NEUTROPHILS # (AUTO) 13.5 (2.1-6.9); NEUTROPHILS % 82.2 % (38.7-80.0); PLATELET COUNT 274 x10e3/uL (140-360); RED BLOOD COUNT 2.98 x10e6/uL (3.6-5.1); RED CELL DISTRIBUTION WIDTH 14.9 % (11.7-14.4)
[2022-04-22] MEDS: DIGOXIN 0.125 MG TAB PO SCH (08:05)
[2022-04-22] MEDS: HYDROMORPHONE 1MG/1ML INJ IV PRN ×2 (08:25→19:07)
[2022-04-22] MEDS: ONDANSETRON HCL INJ 2MG/ML 2ML 2 MG/ML VIAL IV PRN ×3 (08:25→18:15)
[2022-04-22 08:40] LABS: ANION GAP 12.5 mmol/L (8-16); CALCIUM 7.1 mg/dL (8.4-10.2); CREATININE, SERUM 1.01 mg/dL (0.57-1.11)
[2022-04-22 08:41] LABS: POTASSIUM 5.5 mmol/L (3.5-5.1)
[2022-04-22] MEDS: NEBIVOLOL 10 MG TAB PO SCH (09:00)
[2022-04-22] MEDS: LOSARTAN POTASSIUM 25 MG TAB PO SCH ×2 (09:24→21:41)
[2022-04-22] MEDS: HYDROCODONE/APAP 7.5MG-325MG 1 EA TAB PO PRN ×2 (13:50→21:35)
[2022-04-22] MEDS: NEBIVOLOL HCL 2.5 MG TABLET PO SCH (21:41)
[2022-04-23] VITALS (8 sets, daily range): BP systolic 144–159; BP diastolic 56–75
[2022-04-23] MEDS: INSULIN LISPRO 100 UNIT/1 ML 3ML VIAL SQ SCH ×4 (00:13→18:05)
[2022-04-23] MEDS: HYDROMORPHONE 1MG/1ML INJ IV PRN ×2 (03:06→10:14)
[2022-04-23] MEDS: ONDANSETRON HCL INJ 2MG/ML 2ML 2 MG/ML VIAL IV PRN ×2 (03:06→10:14)
[2022-04-23 05:58] LABS: BASOPHILS # (AUTO) 0.1 (0.0-0.1); BASOPHILS % 0.4 % (0.0-1.0); EOSINOPHILS % 0.2 % (0.0-6.0); HEMATOCRIT 26.6 % (34.2-44.1); HEMOGLOBIN 8.1 g/dL (12.0-16.0); LYMPHOCYTES # (AUTO) 0.6 (1.0-3.2); LYMPHOCYTES % 3.6 % (18.0-39.1); MEAN CORPUSCULAR HEMOGLOBIN 29.3 pg (28-32); MEAN CORPUSCULAR HGB CONC 30.5 g/dL (31-35); MEAN CORPUSCULAR VOLUME 96.4 fL (81-99); MONOCYTES # (AUTO) 1.2 (0.2-0.8); MONOCYTES % 7.2 % (4.4-11.3); NEUTROPHILS # (AUTO) 14.7 (2.1-6.9); NEUTROPHILS % 87.8 % (38.7-80.0); PLATELET COUNT 275 x10e3/uL (140-360); RED BLOOD COUNT 2.76 x10e6/uL (3.6-5.1); RED CELL DISTRIBUTION WIDTH 15.3 % (11.7-14.4)
[2022-04-23 06:15] LABS: ANION GAP 13.6 mmol/L (8-16); CALCIUM 7.4 mg/dL (8.4-10.2); POTASSIUM 4.6 mmol/L (3.5-5.1)
[2022-04-23] MEDS: SODIUM CHLORIDE 0.9% 1000ML 1,000 ML IV SCH (08:00)
[2022-04-23] MEDS: NEBIVOLOL HCL 2.5 MG TABLET PO SCH ×2 (09:45→21:50)
[2022-04-23] MEDS: LOSARTAN POTASSIUM 25 MG TAB PO SCH ×2 (09:45→21:50)
[2022-04-23] MEDS: DIGOXIN 0.125 MG TAB PO SCH (09:45)
[2022-04-23] MEDS ORDERED: FUROSEMIDE INJ 10 MG/ML 2 ML VIAL IV ONE (16:30)
[2022-04-23] MEDS: ACETYLCYSTEINE 20% INHAL SOLN 30 ML VIAL INH SCH (18:46)
[2022-04-23] MEDS: LEVALBUTEROL HCL SOLN NEBU 0.63 MG/3 ML NEB INH SCH (18:46)
[2022-04-23] MEDS: HYDROCODONE/APAP 7.5MG-325MG 1 EA TAB PO PRN (20:50)
[2022-04-24] VITALS (7 sets, daily range): BP systolic 137–161; BP diastolic 44–68
[2022-04-24] MEDS: INSULIN LISPRO 100 UNIT/1 ML 3ML VIAL SQ SCH ×4 (06:00→18:00)
[2022-04-24] MEDS: ACETYLCYSTEINE 20% INHAL SOLN 30 ML VIAL INH SCH ×4 (06:02→19:20)
[2022-04-24] MEDS: LEVALBUTEROL HCL SOLN NEBU 0.63 MG/3 ML NEB INH SCH ×4 (06:02→19:20)
[2022-04-24 06:18] LABS: BASOPHILS % 0.3 % (0.0-1.0); EOSINOPHILS # (AUTO) 0.1 (0.0-0.4); EOSINOPHILS % 1.1 % (0.0-6.0); HEMOGLOBIN 7.9 g/dL (12.0-16.0); LYMPHOCYTES # (AUTO) 0.9 (1.0-3.2); LYMPHOCYTES % 7.5 % (18.0-39.1); MEAN CORPUSCULAR HEMOGLOBIN 30.3 pg (28-32); MEAN CORPUSCULAR HGB CONC 31.6 g/dL (31-35); MEAN CORPUSCULAR VOLUME 95.8 fL (81-99); MONOCYTES # (AUTO) 1.1 (0.2-0.8); NEUTROPHILS # (AUTO) 10.1 (2.1-6.9); NEUTROPHILS % 81.2 % (38.7-80.0); PLATELET COUNT 263 x10e3/uL (140-360); RED BLOOD COUNT 2.61 x10e6/uL (3.6-5.1); RED CELL DISTRIBUTION WIDTH 14.7 % (11.7-14.4)
[2022-04-24 06:20] LABS: ANION GAP 14.2 mmol/L (8-16); CALCIUM 7.9 mg/dL (8.4-10.2); CREATININE, SERUM 0.86 mg/dL (0.57-1.11); POTASSIUM 4.2 mmol/L (3.5-5.1)
[2022-04-24] MEDS: NEBIVOLOL HCL 2.5 MG TABLET PO SCH ×2 (08:52→21:59)
[2022-04-24] MEDS: DIGOXIN 0.125 MG TAB PO SCH (08:53)
[2022-04-24] MEDS: LOSARTAN POTASSIUM 25 MG TAB PO SCH ×2 (08:53→21:59)
[2022-04-24] MEDS ORDERED: FUROSEMIDE INJ 10 MG/ML 2 ML VIAL IV ONE (11:30)
[2022-04-24] MEDS: HYDROMORPHONE 1MG/1ML INJ IV PRN (22:40)
[2022-04-25] VITALS (11 sets, daily range): BP systolic 127–175; BP diastolic 47–77
[2022-04-25] MEDS: ACETYLCYSTEINE 20% INHAL SOLN 30 ML VIAL INH SCH ×3 (00:42→12:58)
[2022-04-25] MEDS: LEVALBUTEROL HCL SOLN NEBU 0.63 MG/3 ML NEB INH SCH ×3 (00:42→12:58)
[2022-04-25] MEDS: INSULIN LISPRO 100 UNIT/1 ML 3ML VIAL SQ SCH ×4 (01:04→17:25)
[2022-04-25] MEDS: LOSARTAN POTASSIUM 25 MG TAB PO SCH ×2 (09:10→20:52)
[2022-04-25] MEDS: DIGOXIN 0.125 MG TAB PO SCH (09:11)
[2022-04-25] MEDS: NEBIVOLOL HCL 2.5 MG TABLET PO SCH ×2 (09:12→20:51)
[2022-04-25] MEDS ORDERED: MAGNESIUM HYDROXIDE 30 ML UDC PO ONE (21:00)
[2022-04-26 00:28] VITALS: BP 145/70
[2022-04-26] MEDS: INSULIN LISPRO 100 UNIT/1 ML 3ML VIAL SQ SCH ×5 (00:34→20:22)
[2022-04-26] MEDS ORDERED: FUROSEMIDE INJ 10 MG/ML 4 ML VIAL IV ONE (07:00)
[2022-04-26 08:43] VITALS: BP 142/57
[2022-04-26] MEDS: NEBIVOLOL HCL 2.5 MG TABLET PO SCH (08:50)
[2022-04-26] MEDS: LOSARTAN POTASSIUM 25 MG TAB PO SCH ×2 (08:52→20:14)
[2022-04-26] MEDS: DIGOXIN 0.125 MG TAB PO SCH (08:53)
[2022-04-26 09:07] VITALS: BP 142/57
[2022-04-26 09:07] LABS: BASOPHILS % 0.3 % (0.0-1.0); EOSINOPHILS # (AUTO) 0.1 (0.0-0.4); EOSINOPHILS % 0.9 % (0.0-6.0); HEMATOCRIT 28.2 % (34.2-44.1); HEMOGLOBIN 8.6 g/dL (12.0-16.0); LYMPHOCYTES # (AUTO) 0.7 (1.0-3.2); LYMPHOCYTES % 7.1 % (18.0-39.1); MEAN CORPUSCULAR HEMOGLOBIN 29.1 pg (28-32); MEAN CORPUSCULAR HGB CONC 30.5 g/dL (31-35); MEAN CORPUSCULAR VOLUME 95.3 fL (81-99); MONOCYTES # (AUTO) 0.9 (0.2-0.8); MONOCYTES % 9.6 % (4.4-11.3); NEUTROPHILS # (AUTO) 7.6 (2.1-6.9); NEUTROPHILS % 81.3 % (38.7-80.0); PLATELET COUNT 310 x10e3/uL (140-360); RED BLOOD COUNT 2.96 x10e6/uL (3.6-5.1); RED CELL DISTRIBUTION WIDTH 14.9 % (11.7-14.4)
[2022-04-26 09:42] LABS: ALBUMIN 2.4 g/dL (3.5-5.0); ALBUMIN/GLOBULIN RATIO 0.6 (0.8-2.0); ANION GAP 14.7 mmol/L (8-16); CREATININE, SERUM 0.92 mg/dL (0.57-1.11); POTASSIUM 3.7 mmol/L (3.5-5.1)
[2022-04-26 11:51] VITALS: BP 137/45
[2022-04-26 16:06] VITALS: BP 123/51
[2022-04-26] MEDS: ACETYLCYSTEINE 200 MG/ML 4ML VIAL INH SCH (19:00)
[2022-04-26 20:00] VITALS: BP 133/39
[2022-04-26] MEDS: NEBIVOLOL 10 MG TAB PO SCH (20:33)
[2022-04-27] VITALS (8 sets, daily range): BP systolic 116–168; BP diastolic 28–79
[2022-04-27] MEDS: LEVALBUTEROL HCL SOLN NEBU 0.63 MG/3 ML NEB INH SCH ×4 (00:28→19:40)
[2022-04-27] MEDS: ACETYLCYSTEINE 200 MG/ML 4ML VIAL INH SCH ×4 (01:00→19:40)
[2022-04-27] MEDS: INSULIN LISPRO 100 UNIT/1 ML 3ML VIAL SQ SCH ×4 (07:30→21:00)
[2022-04-27] MEDS ORDERED: SODIUM CHLORIDE 0.9% 250ML 250 ML ONE (09:22)
[2022-04-27] MEDS: NEBIVOLOL 10 MG TAB PO SCH ×2 (09:28→21:00)
[2022-04-27] MEDS: DIGOXIN 0.125 MG TAB PO SCH (09:28)
[2022-04-27] MEDS: LOSARTAN POTASSIUM 25 MG TAB PO SCH ×2 (09:29→21:00)
[2022-04-27 13:27] LABS: ABG HCO3 30 mmol/L (22-26); ABG PCO2 35 mmHg (35-45); ABG PH 7.53 (7.35-7.45); ABG PO2 69 mmHg (80-105); ABG TCO2 31
[2022-04-27] MEDS ORDERED: IOPAMIDOL 370 MG/ML 100 ML INFUS..BTL INJ ONE (14:32)
[2022-04-28] VITALS: BP 142/55
[2022-04-28] MEDS: LEVALBUTEROL HCL SOLN NEBU 0.63 MG/3 ML NEB INH SCH ×3 (00:12→13:00)
[2022-04-28] MEDS: ACETYLCYSTEINE 200 MG/ML 4ML VIAL INH SCH ×3 (01:00→13:00)
[2022-04-28 04:00] VITALS: BP_SYST 105; BP_SYST 125; BP_DIAS 47; BP_DIAS 66
[2022-04-28 08:12] VITALS: BP 142/44
[2022-04-28 09:00] VITALS: BP 142/44
[2022-04-28] MEDS: LOSARTAN POTASSIUM 25 MG TAB PO SCH (09:00)
[2022-04-28] MEDS: NEBIVOLOL 10 MG TAB PO SCH (09:00)
[2022-04-28] MEDS: DIGOXIN 0.125 MG TAB PO SCH (10:03)
[2022-04-28] MEDS: INSULIN LISPRO 100 UNIT/1 ML 3ML VIAL SQ SCH ×2 (10:10→13:22)
[2022-04-28 11:33] VITALS: BP 133/52
[2022-04-28] MEDS ORDERED: FUROSEMIDE 20 MG TAB PO SCH (12:00)
== END 2022-04-28 14:10 | disposition home or self-care (01) | DRG 271 ==
LOC: ER 09:37 → UNDOADMIN 10:57 → ERHOLD 10:57 → PACU V 15:49 → ICU 16:53 → MED/SURG 04-22 13:26
PROVIDERS: ADMIT Surgery; ATTEND Surgery
PROC: 04L20ZZ Occlusion of Gastric Artery, Open Approach (ICD-10-PCS; 2022-04-21)
PROC: 0JC80ZZ Extirpation of Matter from Abdomen Subcutaneous Tissue and Fascia, Open Approach (ICD-10-PCS; 2022-04-21)
PROC: B41B1ZZ Fluoroscopy of Other Intra-Abdominal Arteries using Low Osmolar Contrast (ICD-10-PCS; 2022-04-21)
PROC: B41J1ZZ Fluoroscopy of Other Lower Arteries using Low Osmolar Contrast (ICD-10-PCS; 2022-04-21)
PROC: 0JC70ZZ Extirpation of Matter from Back Subcutaneous Tissue and Fascia, Open Approach (ICD-10-PCS; 2022-04-21)
PROC: 30233N1 Transfusion of Nonautologous Red Blood Cells into Peripheral Vein, Percutaneous Approach (ICD-10-PCS; 2022-04-21)
PROC: 0KCK0ZZ Extirpation of Matter from Right Abdomen Muscle, Open Approach (ICD-10-PCS; 2022-04-21)
PROC: 04V23DZ Restriction of Gastric Artery with Intraluminal Device, Percutaneous Approach (ICD-10-PCS; principal; 2022-04-21 13:21)
DX: I77.2 Rupture of artery (principal); D62 Acute posthemorrhagic anemia; I48.20 Chronic atrial fibrillation, unspecified; M79.81 Nontraumatic hematoma of soft tissue; E11.9 Type 2 diabetes mellitus without complications; E66.01 Morbid (severe) obesity due to excess calories; E78.00 Pure hypercholesterolemia, unspecified; I25.10 Atherosclerotic heart disease of native coronary artery without angina pectoris; J06.9 Acute upper respiratory infection, unspecified; Z68.35 Body mass index [BMI] 35.0-35.9, adult; Z95.5 Presence of coronary angioplasty implant and graft; Z95.818 Presence of other cardiac implants and grafts; Z09 Encounter for follow-up examination after completed treatment for conditions other than malignant neoplasm; Z86.718 Personal history of other venous thrombosis and embolism; Z90.49 Acquired absence of other specified parts of digestive tract; Z88.2 Allergy status to sulfonamides; Z88.8 Allergy status to other drugs, medicaments and biological substances; Z79.4 Long term (current) use of insulin
CPT/HCPCS: 36415; 36600; 71045; 71046; 71260; 74174; 75625; 75726; 75774; 76937; 80048; 80053; 82805; 82948; 83605; 83690; 84484; 85025; 86850; 86900; 86920; 87040; 93005; 94640; 94799; 96372; 99152; 99153; 99251; 99284; C1760; C1769; C1887; J0330; J0690; J0696; J1170; J1940; J2001; J2250; J2405; J3010; J7030; J7050; P9016; Q9967

== ENCOUNTER 2022-05-05 20:11 | Emergency (ER) | payer MEDICARE, BC ==
[~2022-05-05] VITALS: Ht 162.6 cm; Wt 94.3 kg
[~2022-05-05 20:11] MED LIST changes: +ASPIRIN EC81 MG PO; +BENICAR20 MG PO; +FARXIGA5 MG PO; +LEVEMIR100 UNIT/1 SC; +gemtesa PO
[2022-05-05] MEDS ORDERED: HYDRALAZINE HCL 20 MG/ML VIAL IV STA (20:43)
[2022-05-05 21:05] LABS: BASOPHILS % 0.4 % (0.0-1.0); EOSINOPHILS # (AUTO) 0.2 (0.0-0.4); EOSINOPHILS % 2.3 % (0.0-6.0); HEMATOCRIT 34.2 % (34.2-44.1); HEMOGLOBIN 10.3 g/dL (12.0-16.0); LYMPHOCYTES # (AUTO) 1.6 (1.0-3.2); LYMPHOCYTES % 16.4 % (18.0-39.1); MEAN CORPUSCULAR HEMOGLOBIN 28.5 pg (28-32); MEAN CORPUSCULAR HGB CONC 30.1 g/dL (31-35); MEAN CORPUSCULAR VOLUME 94.7 fL (81-99); MONOCYTES # (AUTO) 0.9 (0.2-0.8); MONOCYTES % 8.7 % (4.4-11.3); NEUTROPHILS # (AUTO) 7.2 (2.1-6.9); NEUTROPHILS % 71.9 % (38.7-80.0); PLATELET COUNT 566 x10e3/uL (140-360); RED BLOOD COUNT 3.61 x10e6/uL (3.6-5.1); RED CELL DISTRIBUTION WIDTH 15.4 % (11.7-14.4)
[2022-05-05 21:25] LABS: ALBUMIN 3.1 g/dL (3.5-5.0); ALBUMIN/GLOBULIN RATIO 0.6 (0.8-2.0); ANION GAP 17.4 mmol/L (8-16); CALCIUM 9.2 mg/dL (8.4-10.2); CREATININE, SERUM 1.32 mg/dL (0.57-1.11); POTASSIUM 4.4 mmol/L (3.5-5.1)
[2022-05-05 21:32] LABS: CREATINE KINASE MB 0.9 ng/mL (0-5.0)
[2022-05-05 21:54] LABS: BACTERIA,URINE FEW /HPF; CLARITY,URINE CLEAR (CLEAR); COLOR,URINE YELLOW (YELLOW); EPITHELIAL CELLS,URINE FEW /LPF; KETONES,URINE NEGATIVE (NEGATIVE); LEUKOCYTE ESTERASE ,URINE NEGATIVE (NEGATIVE); NITRITE,URINE NEGATIVE (NEGATIVE); PROTEIN,URINE DIPSTICK NEGATIVE (NEGATIVE); RBC,URINE 0-5 /HPF (0-5); URINE UROBILINOGEN 0.2 mg/dL (0.2 - 1); WBC,URINE (MAN) 0-5 /HPF (0-5)
[2022-05-05] MEDS ORDERED: ACETAMINOPHEN 1000 MG/100 ML IV STA (22:17)
[2022-05-05 23:10] VITALS: BP 165/70
== END 2022-05-05 23:11 | disposition other institution (70) ==
LOC: ER 20:15
DX: U07.1 COVID-19 (principal); I63.9 Cerebral infarction, unspecified; I16.1 Hypertensive emergency; I10 Essential (primary) hypertension; E11.65 Type 2 diabetes mellitus with hyperglycemia; I48.91 Unspecified atrial fibrillation; Z86.711 Personal history of pulmonary embolism; Z95.5 Presence of coronary angioplasty implant and graft; R94.31 Abnormal electrocardiogram [ECG] [EKG]
CPT/HCPCS: 36415; 70450; 80053; 81001; 82550; 82553; 83690; 84484; 85025; 93005; 99284; J0131; J0360; U0002

== ENCOUNTER → 2022-09-19 | Outpatient (CLI) | payer MEDICARE, BC | LOC: MAMMO 10:45 | PROVIDERS: ATTEND Internal Medicine | DX: Z12.31 Encounter for screening mammogram for malignant neoplasm of breast (principal) | CPT/HCPCS: 77067 ==

== ENCOUNTER → 2023-01-26 | Outpatient (CLI) | payer MEDICARE, BC | LOC: MRI 13:59 | PROVIDERS: ATTEND Surgery | DX: Z86.73 Personal history of transient ischemic attack (TIA), and cerebral infarction without residual deficits (principal) | CPT/HCPCS: 70551 ==

== ENCOUNTER → 2023-02-05 | Outpatient (CLI) | payer MEDICARE, BC | LOC: RAD 10:20 | PROVIDERS: ATTEND Internal Medicine | DX: J20.9 Acute bronchitis, unspecified (principal) | CPT/HCPCS: 71046 ==

== ENCOUNTER → 2025-01-08 | Outpatient (REF) | payer MEDICARE, BC ==
[~2025-01-08] MED LIST changes: +BYSTOLIC10 MG PO; +CULTURELLE1 EACH PO; +ELIQUIS2.5 MG PO; +LEVALBUTEROL TA15 GM INH; +LEVOTHYROXINE50 MCG PO; +NIFEDIPINE10 MG PO; +PAXLOVID 300-11 EACH PO; +PRALUENT P75 MG/1 ML; +TRESIBA100 UNIT/1 SC; +ZITHROMAX250 MG PO
== END ==
LOC: RAD 15:42
PROVIDERS: ATTEND Internal Medicine
DX: M54.50 Low back pain, unspecified (principal)
CPT/HCPCS: 72100